=== PATIENT | female | born 2000 | race African-American/Black ===

== ENCOUNTER 2024-03-02 12:47 | Emergency (ER) | payer SELFPAY ==
[2024-03-02 13:16] VITALS: BP 114/73; PULSE 75; RESP 16; TEMP 37.1; O2SAT 99
--- NOTE | 2024-03-02 13:42 | ED_ITS ---
HPI - Ear Problem General Chief complaint: Ear Stated complaint: R Ear Pain Time Seen by Provider: 03/02/24 13:40 Source: patient, RN notes reviewed and old records reviewed Mode of arrival: ambulatory Limitations: no limitations History of Present Illness HPI Narrative: 24-year-old female presents to the [facility] with right ear pain for 1 week, 2 days ago started with increased discomfort. Has been using a ear drops and Q- tips. Denies fevers. Denies any other symptoms. Related Data Allergies Allergy/AdvReac Type Severity Reaction Status Date / Time No Known Allergies Allergy Verified 03/02/24 13:47 Review of Systems Review of Systems: All systems reviewed & are unremarkable except as noted in HPI and below Constitutional: Constitutional: Reports no additional constitutional complaints ENT: Reports as per HPI and Reports otalgia Cardiovascular: Cardiovascular: Reports no additional cardiovascular complaints, Denies chest pain and Denies dyspnea Respiratory: Respiratory: Reports no additional respiratory complaints, Denies chest congestion, Denies cough and Denies dyspnea Musculoskeletal: Musculoskeletal: Reports no additional musculoskeletal complaints Integumentary/Breasts: Skin/Breast: Reports system reviewed and no additional complaints, except as docu PMFSH Comments At the time of my signature, I reviewed and agree with the nursing past medical, surgical, social, and family history. There is no relevant family history pertinent to the patient complaint. Exam Const: General: cooperative, healthy appearing, comfortable, no acute distress, well developed, alert and well nourished Nutritional Appearance: well nourished Orientation/consciousness: patient oriented x3 Limitations: no limitations HENMT: Head: normal to inspection Ears: hearing grossly normal bilaterally, external ears normal, Abnormal EAC present erythema on the right, edema on the right, EAC tenderness on the right and other (Abrasion noted mid ear canal lower aspect) and TM abnormal erythematous on the right; not bulging F jessica/Nose/Sinus: Normal nares present, normal facial exam and face symmetric Face and sinus: normal facial exam and face symmetric Throat: posterior oropharynx normal, tonsils normal, uvula midline and no uvular edema Eyes: General: appearance normal, both eyes and all related structures Neck: Neck: normal visual inspection, full ROM, no lymphadenopathy and no meningeal signs Chest: Chest palpation & inspection: normal inspection of the chest Resp: Effort & Inspection: normal respiratory effort and able to speak in complete sentences Auscultation: clear to auscultation bilaterally, no crackles, no rales, no rhonchi and no wheezes Cardio: Rate: regular rate Skin: General skin exam: normal color and no rashes or lesions noted Neuro: General: patient oriented x3, gait normal, moves all extremities and no meningeal signs Cognition (Neuro): normal cognition Speech: normal speech Gait exam (Neuro): Normal gait present Extrem: General: normal to inspection, full ROM, capillary refill normal and normal gait Psych: Appearance: grossly normal and well kempt Mental Status: mental status grossly normal Speech and movement: Normal speech and movement present and Clear speech present Affect: normal affect Attitude: cooperative Course Course Level of Care: Express Care Visit Vital Signs Vital signs: Vital Signs Temperature 98.7 F 03/02/24 13:16 Pulse Rate 75 03/02/24 13:16 Respiratory Rate 16 03/02/24 13:16 Blood Pressure 114/73 03/02/24 13:16 Pulse Oximetry 99 03/02/24 13:16 Oxygen Delivery Room Air 03/02/24 13:16 Temperature 98.7 F 03/02/24 13:16 Pulse Rate 75 03/02/24 13:16 Respiratory Rate 16 03/02/24 13:16 Blood Pressure 114/73 03/02/24 13:16 Pulse Oximetry 99 03/02/24 13:16 Oxygen Delivery Room Air 03/02/24 13:16 Reviewed Medical Decision Making MDM Narrative Medical decision making narrative: Patient sitting comfortably in exam room. Nontoxic, vitals stable. Patient in no acute distress Patient presents for 1 week of right ear pain, worsening over the last couple of days. Erythema noted to both the TM and the ear canal with mild swelling. S mall abrasion noted to the mid lower ear canal most likely due to Q-tips. Patient appropriate for outpatient treatment with close follow-up Discharge instructions reviewed with patient, as well as provided in writing per nursing staff. The instructions also include specific and strict return/GO TO THE ER as well as f/u information. All questions have been answered, and the patient deny any further questions with discharge and discharge plan. Some parts of this dictation were generated by voice recognition software and may contain typographical and/or grammatical inaccuracies. Differential Diagnosis Differential Diagnosis: Otitis media, serous otitis, otitis externa Medical Records Medical records reviewed: Yes I reviewed the external patient's medical records. Vital Signs Vital Signs: Vital Signs Temperature 98.7 F 03/02/24 13:16 Pulse Rate 75 03/02/24 13:16 Respiratory Rate 16 03/02/24 13:16 Blood Pressure 114/73 03/02/24 13:16 Pulse Oximetry 99 03/02/24 13:16 Oxygen Delivery Room Air 03/02/24 13:16 Temperature 98.7 F 03/02/24 13:16 Pulse Rate 75 03/02/24 13:16 Respiratory Rate 16 03/02/24 13:16 Blood Pressure 114/73 03/02/24 13:16 Pulse Oximetry 99 03/02/24 13:16 Oxygen Delivery Room Air 03/02/24 13:16 Reviewed Lab Data Lab results reviewed: Yes I reviewed the patient's lab results. Labs: Reviewed Critical Care Time Critical Care Time Critical Care Time: No Discharge Plan Discharge Clinical Impression: Acute right otitis media Abrasion of right ear canal Qualifiers: Encounter type: initial encounter Qualified Code(s): S00.411A - Abrasion of right ear, initial encounter Patient Disposition: Home, Self-Care Condition: Stable Instructions: Antibiotic Form, Ear Infection (AC) Additional Instructions: Take antibiotic as prescribed Use ear drops as prescribed Follow-up with primary care provider Patient Language: Niuean Prescriptions: New amoxicillin 875 mg tablet 875 mg PO Q12H Qty: 20 0RF ciprofloxacin HCl 0.3 % drops See Rx Instructions .Route .COMPLEX Qty: 2.5 0RF Rx Instructions: Place 4 drops in right ear twice daily for 7 days Follow-up/Referrals: UNKNOWN,DOCTOR [Primary Care Provider] - Stand Alone Forms: Work/School Release IP Time of Disposition: 13:50
== END 2024-03-02 13:54 | disposition home or self-care (01) ==
PROVIDERS: Emergency Provider Nurse Practitioner
DX: H66.91 Otitis media, unspecified, right ear (principal); S00.411A Abrasion of right ear, initial encounter; X58.XXXA Exposure to other specified factors, initial encounter
CPT/HCPCS: 99203; G0463